=== PATIENT | male | born 1960 | race American Indian/Alaskan Native ===

== ENCOUNTER 2019-01-20 06:58 | Outpatient (CLI) | payer OTHER ==
--- NOTE | 2019-01-20 08:32 | Ultrasound Report ---
LIMITED RUQ ABDOMINAL ULTRASOUND INDICATION: Z12.11 COLON CANCER SCEENING/Z90.0 FAMILY HISTORY OF COLON CANCER. COMPARISON: No relevant prior imaging study available. FINDINGS: Pancreas: A hypoechoic ovoid masslike lesion measuring 1.9 x 2.6 x 1.9 cm is identified within or adj acent to the body of the pancreas. The remainder the pancreas is unremarkable.. Abdominal Aorta: No significant abnormality. IVC: Not visualized.. Liver: The liver measures 15 cm in length. No significant abnormality. Normal hepatopedal blood flow in the main portal vein. Gallbladder: There is a mild degree of sludge in the gallbladder. No shadowing gallstones, wall thick ening or surrounding fluid.. Bile ducts: No significant abnormality. Common bile duct measures 3.4 mm. Right kidney: No significant abnormality visualized.. Free fluid: None. Additional Findings: None. IMPRESSION: Hypoechoic masslike lesion within or adjacent to the body of the pancreas. The etiology of this is un clear on ultrasound. This could represent a pancreatic mass, lymph node or complex pseudocyst. Consid er further evaluation with CT abdomen and pelvis with contrast. Small sludge in the gallbladder. Normal liver. Signer Name: Yinka Martines Jr, MD Signed: 01/20/2019 8:28 AM Workstation Name: [id number]
== END 2019-01-20 06:59 | disposition home or self-care (01) ==
LOC: US 06:58
DX: Z12.11 Encounter for screening for malignant neoplasm of colon (principal); K82.8 Other specified diseases of gallbladder
CPT/HCPCS: 76705